=== PATIENT | female | born 1990 | race Two or more races ===

== ENCOUNTER 2021-08-13 20:53 | Emergency (ER) | payer MEDICAID ==
[~2021-08-13] VITALS: Ht 170.2 cm; Wt 95.0 kg
[2021-08-13] MEDS ORDERED: TETANUS, DIPHTHERIA, PERTUSSIS VAC/PF 0.5ML (>7YR OLD) IM ONE (22:15)
[2021-08-13 22:30] VITALS: BP 131/77
[2021-08-13] MEDS ORDERED: ACETAMINOPHEN 325MG TABLET PO ONE (22:30)
== END 2021-08-13 23:01 | disposition home or self-care (01) ==
LOC: ER 20:53
DX: S61.217A Laceration without foreign body of left little finger without damage to nail, initial encounter (principal); W26.0XXA Contact with knife, initial encounter; Y93.89 Activity, other specified; Y92.89 Other specified places as the place of occurrence of the external cause; Y99.8 Other external cause status
CPT/HCPCS: 12001; 90471; 90715; 99283